=== PATIENT | male | born 1965 | race Caucasian/White ===

== ENCOUNTER 2020-07-03 08:34 | Inpatient (IN) | payer BC ==
[~2020-07-03] VITALS: Ht 193 cm; Wt 102.3 kg
[2020-07-03] MEDS ORDERED: diltiazem 5mg/ml 5ml inj. IV ONE (08:50)
[2020-07-03] MEDS ORDERED: aspirin 81mg tab.chew PO ONE (08:50)
[2020-07-03] MEDS ORDERED: diltiazem-D5W 125mg/125ml 125 ML IV ONE (08:50)
[2020-07-03] MEDS ORDERED: diltiazem-NS 100mg/100ml 100 ML IV ONE (08:55)
[2020-07-03 09:12] LABS: BASOPHILS # (AUTO) 0.1 X10'3 (0-0.2); BASOPHILS % (AUTO) 1.2 % (0-1); EOSINOPHILS # (AUTO) 0.3 X10'3 (0-0.9); EOSINOPHILS % (AUTO) 2.6 % (0-6); HEMATOCRIT 45.5 % (42.0-52.0); HEMOGLOBIN 15.2 g/dl (14.0-17.9); LYMPHOCYTES # (AUTO) 1.9 X10'3 (1.1-4.8); LYMPHOCYTES % (AUTO) 17.3 % (21-51); MEAN CORPUSCULAR HEMOGLOBIN 32.2 PG (27.0-31.0); MEAN CORPUSCULAR HGB CONC 33.3 g/dL (33.0-36.5); MEAN CORPUSCULAR VOLUME 96.6 FL (78-98); MEAN PLATELET VOLUME 8.5 FL (7.4-10.4); MONOCYTES # (AUTO) 0.9 X10'3 (0-0.9); MONOCYTES % (AUTO) 8.1 % (2-12); NEUTROPHILS # (AUTO) 7.6 X10'3 (1.8-7.7); NEUTROPHILS % (AUTO) 70.8 % (42-75); PLATELET COUNT 239 X10'3 (140-440); RED BLOOD COUNT 4.71 X10'6 (4.70-6.10); RED CELL DISTRIBUTION WIDTH 13.9 % (11.5-14.5); WHITE BLOOD COUNT 10.8 X10'3 (4.5-11.0)
[2020-07-03 09:28] LABS: ALANINE AMINOTRANSFERASE 32 U/L (12-78); ALBUMIN 3.6 G/DL (3.4-5.0); ALBUMIN/GLOBULIN RATIO 0.9 (1.1-1.5); ALKALINE PHOSPHATASE 125 IU/L (46-116); ANION GAP 9 (8-16); ASPARTATE AMINO TRANSFERASE 27 U/L (10-37); BILIRUBIN,TOTAL 0.8 MG/DL (0.1-1.0); BLOOD UREA NITROGEN 21 MG/DL (7-18); BUN/CREATININE RATIO 19.6 (5.4-32.0); CALCIUM 9.3 MG/DL (8.5-10.1); CHLORIDE 104 MMOL/L (99-107); CREATININE 1.07 MG/DL (0.60-1.10); GLUCOSE 113 MG/DL (70-104); POTASSIUM 4.8 MMOL/L (3.5-5.1); SODIUM 138 MMOL/L (135-145); TOTAL CARBON DIOXIDE 24.7 MMOL/L (24-32); TOTAL PROTEIN 7.6 G/DL (6.4-8.2); eGFR 71 ML/MIN
[2020-07-03 09:36] LABS: MAGNESIUM 1.9 MG/DL (1.5-2.4)
[2020-07-03] MEDS ORDERED: enoxaparin 100mg/ml syringe SUBCUT ONE ×2 (10:00→10:05)
[2020-07-03] MEDS ORDERED: metoprolol tartrate 1mg/ml inj IV ONE (10:00)
[2020-07-03 10:20] LABS: D-DIMER 1.46 MG/L FEU (0-0.50)
[2020-07-03] MEDS ORDERED: iohexol 350MG/ML 100ml bottle IV ONE (10:47)
[2020-07-03] MEDS ORDERED: mag hydrox/Alum hydrox/simeth 30ml oral suspension PO PRN (11:35)
[2020-07-03] MEDS ORDERED: HYDROcodone/acetaminophen 10/325mg tab PO PRN (11:35)
[2020-07-03] MEDS ORDERED: magnesium hydroxide 30ml (MOM) UD suspension PO PRN (11:35)
[2020-07-03] MEDS ORDERED: magnesium Cl slow-release 64mg tablet PO PRN (11:35)
[2020-07-03] MEDS ORDERED: magnesium 4gm in 100ml NS 100 ML IV PRN (11:35)
[2020-07-03] MEDS ORDERED: potassium CL 10mEq/100ml bag 100 ML IV PRN ×2 (11:35)
[2020-07-03] MEDS ORDERED: magnesium 2GM in 50ml NS 50 ML IV PRN (11:35)
[2020-07-03] MEDS ORDERED: morphine 2 MG/ML inj. syringe IV PRN ×2 (11:35)
[2020-07-03] MEDS ORDERED: bisacodyl 10mg suppository rectal RC PRN (11:35)
[2020-07-03] MEDS ORDERED: ondansetron/PF 4mg/2ml inj IV PRN (11:35)
[2020-07-03] MEDS ORDERED: acetaminophen 325mg tablet PO PRN ×2 (11:35)
[2020-07-03] MEDS ORDERED: diphenhydrAMINE 25mg capsule PO PRN (11:35)
[2020-07-03] MEDS ORDERED: HYDROcodone/acetaminophen 5mg/325mg tablet PO PRN (11:35)
[2020-07-03] MEDS ORDERED: normal saline 1000ml 1,000 ML IV SCH (11:35)
[2020-07-03] MEDS ORDERED: acetaminophen 650mg rectal suppository RC PRN (11:35)
[2020-07-03] MEDS ORDERED: potassium Cl 20 mEq SR tablet PO PRN ×2 (11:35)
[2020-07-03] MEDS: diltiazem-NS 100mg/100ml 100 ML IV SCH (11:45)
[2020-07-03 11:54] LABS: CLARITY,URINE CLEAR (Clear); COLOR,URINE STRAW (Yellow); GLUCOSE, URINE NEGATIVE (Neg); KETONES,URINE NEGATIVE (Neg); LEUKOCYTE ESTERASE ,URINE SMALL (Neg); NITRITES, URINE NEGATIVE (Neg); OCCULT BLOOD,URINE NEGATIVE (Neg); PH,URINE 5.5 (4.8-8.0); PROTEIN,URINE NEGATIVE (Neg); UA COLLECTION TYPE URINAL; UROBILINOGEN,URINE 0.2 E.U/dL (0.2-1.0)
[2020-07-03 12:19] LABS: BACTERIA,URINE FEW /HPF (Neg); RBC,URINE 0-2 /HPF (0-2); SQUAMOUS EPITHELIAL CELL,UR FEW /LPF (FEW); WBC,URINE 0-4 /HPF (0-4)
[2020-07-03] MEDS ORDERED: NO HOME MEDS (14:21)
--- NOTE | 2020-07-03 16:00 | NUR ---
Patient in room PCU 3028. I have received report from Nelsy MALDONADO and had the opportunity to ask questions and assume patient care.
[2020-07-03 16:34] VITALS: BP 128/86
[2020-07-03 18:00] VITALS: BP 139/111
--- NOTE | 2020-07-03 18:25 | NUR ---
Patient in room PCU 3028. I have received report from Yary MALDONADO and had the opportunity to ask questions and assume patient care.
--- NOTE | 2020-07-03 18:31 | NUR ---
Problems reprioritized. Patient report given, questions answered & plan of care reviewed with JOEL Nickerson.
[2020-07-03] MEDS: enoxaparin 100mg/ml syringe SUBCUT SCH (19:40)
[2020-07-03] MEDS: K and/or MAG REPLACEMENT MC SCH (20:00)
--- NOTE | 2020-07-03 20:13 | NUR ---
Paged MD Muller regarding patient's need for nicotine patch and sleep aid for patient. PAGER ID: [phone] MESSAGE: Re: Stepan Kraftgarima Rm. [id number]. Patient smokes 10x cigarettes/day. Possible to get nicotine patch? Also having difficulty sleep past three days. Possible sleep aid? FYI: Smokes pot at home for sleep. Jose MALDONADO [id number]
[2020-07-03 22:00] VITALS: BP 120/82
[2020-07-03] MEDS ORDERED: temazepam 15mg capsule PO PRN (22:55)
[2020-07-03] MEDS: nicotine 14mg patch - 24hr TD SCH (23:08)
[2020-07-03] MEDS ORDERED: furosemide 10 MG/1 ML 10ml inj IV ONE (23:30)
[2020-07-03] MEDS ORDERED: ipratropium/albuterol 3ml nebule NEB PRN (23:30)
[2020-07-03] MEDS ORDERED: metoprolol tartrate 1mg/ml inj IV PRN (23:35)
[2020-07-03] MEDS ORDERED: nitroGLYCERIN 0.4mg SUBLingual tab SL PRN (23:35)
[2020-07-03] MEDS ORDERED: aminophylline 250mg/10ml inj. IV PRN (23:35)
[2020-07-03] MEDS: nicotine 21mg patch - 24 hr TD SCH (23:45)
[2020-07-03] MEDS ORDERED: LORazepam 1 MG tablet PO PRN (23:45)
[2020-07-03] MEDS ORDERED: haloperidol lactate 5mg/ml inj IM PRN (23:45)
[2020-07-03] MEDS ORDERED: thiamine inj. 100 MG in normal saline 100ml IV soln 100 ML IV ONE (23:45)
[2020-07-03] MEDS ORDERED: LORazepam 2 mg/ml vial IV PRN (23:45)
[2020-07-03] MEDS ORDERED: haloperidol 5mg tablet PO PRN (23:45)
[2020-07-04] VITALS (12 sets, daily range): BP systolic 103–140; BP diastolic 62–90
[2020-07-04] MEDS: CefTRIAXone/D5W-Rocephin 1gm 50 ML IV SCH ×2 (01:56→07:38)
[2020-07-04] MEDS: metoprolol succinate 25mg (24-HOUR) SR. Tablet PO SCH ×2 (01:56→08:00)
[2020-07-04] MEDS: lisinopril 20mg tablet PO SCH ×2 (01:57→08:00)
[2020-07-04] MEDS: ipratropium/albuterol 3ml nebule NEB SCH ×4 (01:57→20:17)
[2020-07-04] MEDS: diltiazem-NS 100mg/100ml 100 ML IV SCH ×2 (02:02→11:56)
--- NOTE | 2020-07-04 05:04 | NUR ---
[place] I have reviewed and agree with all interventions, assessments performed and documented by Jose MALDONADO. [place] Medication Administration: For this medication-pass time frame, all medication were reviewed, dispensed, administered and documented per hospital policy by Jose MALDONADO.
[2020-07-04 05:07] LABS: BASOPHILS % (AUTO) 0.3 % (0-1); EOSINOPHILS # (AUTO) 0.1 X10'3 (0-0.9); EOSINOPHILS % (AUTO) 1.6 % (0-6); HEMATOCRIT 43.4 % (42.0-52.0); HEMOGLOBIN 14.6 g/dl (14.0-17.9); LYMPHOCYTES % (AUTO) 20.9 % (21-51); MEAN CORPUSCULAR HEMOGLOBIN 31.9 PG (27.0-31.0); MEAN CORPUSCULAR HGB CONC 33.6 g/dL (33.0-36.5); MONOCYTES # (AUTO) 0.8 X10'3 (0-0.9); MONOCYTES % (AUTO) 8.1 % (2-12); NEUTROPHILS # (AUTO) 6.5 X10'3 (1.8-7.7); NEUTROPHILS % (AUTO) 69.1 % (42-75); PLATELET COUNT 219 X10'3 (140-440); RED BLOOD COUNT 4.57 X10'6 (4.70-6.10); RED CELL DISTRIBUTION WIDTH 13.7 % (11.5-14.5); WHITE BLOOD COUNT 9.3 X10'3 (4.5-11.0)
[2020-07-04 05:28] LABS: ALANINE AMINOTRANSFERASE 24 U/L (12-78); ALBUMIN 3.6 G/DL (3.4-5.0); ALBUMIN/GLOBULIN RATIO 0.9 (1.1-1.5); ALKALINE PHOSPHATASE 110 IU/L (46-116); ANION GAP 10 (8-16); ASPARTATE AMINO TRANSFERASE 18 U/L (10-37); BILIRUBIN,TOTAL 1.4 MG/DL (0.1-1.0); BLOOD UREA NITROGEN 20 MG/DL (7-18); BUN/CREATININE RATIO 19.6 (5.4-32.0); CHLORIDE 105 MMOL/L (99-107); CHOLESTEROL 161 MG/DL (0-200); CREATININE 1.02 MG/DL (0.60-1.10); GLUCOSE 107 MG/DL (70-104); HDL CHOLESTEROL 40 MG/DL (35-60); LDL CHOLESTEROL 112 MG/DL (50-100); LIPASE 157 U/L (73-393); MAGNESIUM 1.8 MG/DL (1.5-2.4); PHOSPHORUS 3.5 MG/DL (2.3-4.5); POTASSIUM 3.6 MMOL/L (3.5-5.1); SODIUM 141 MMOL/L (135-145); TOTAL CARBON DIOXIDE 25.8 MMOL/L (24-32); TOTAL PROTEIN 7.4 G/DL (6.4-8.2); TRIGLYCERIDES 117 MG/DL (20-135); eGFR 76 ML/MIN
[2020-07-04] MEDS ORDERED: regadenoson 0.4mg/5ml syringe IV ONE (06:00)
--- NOTE | 2020-07-04 06:08 | NUR ---
Problems reprioritized. Patient report given, questions answered & plan of care reviewed with Yary MALDONADO.
--- NOTE | 2020-07-04 06:29 | NUR ---
Patient in room PCU 3028. I have received report from Liya MALDONADO and Jose MALDONADO and had the opportunity to ask questions and assume patient care.
[2020-07-04] MEDS: K and/or MAG REPLACEMENT MC SCH ×2 (07:36→20:00)
[2020-07-04] MEDS: thiamine 100mg tablet PO SCH (07:38)
[2020-07-04] MEDS: nicotine 14mg patch - 24hr TD SCH (07:38)
[2020-07-04] MEDS: folic acid 1mg tablet PO SCH (07:39)
[2020-07-04] MEDS: multivitamins, therapeutics tablet PO SCH (07:39)
[2020-07-04] MEDS: enoxaparin 100mg/ml syringe SUBCUT SCH ×2 (07:40→19:54)
[2020-07-04] MEDS: nicotine 21mg patch - 24 hr TD SCH (08:00)
[2020-07-04] MEDS: furosemide 40mg/4ml inj IV SCH ×2 (08:00→19:53)
[2020-07-04] MEDS: spironolactone 25 MG tablet PO SCH (08:30)
[2020-07-04 09:31] LABS: URINE AMPHETAMINE SCREEN NEGATIVE (Neg); URINE BARBITUATE SCREEN NEGATIVE (Neg); URINE BENZODIAZEPINES SCREEN NEGATIVE (Neg); URINE CANNABINOID SCREEN POSITIVE (Neg); URINE COCAINE SCREEN NEGATIVE (Neg); URINE METHADONE SCREEN NEGATIVE (Neg); URINE OPIATE SCREEN NEGATIVE (Neg); URINE PHENCYCLIDINE SCREEN NEGATIVE (Neg)
--- NOTE | 2020-07-04 10:00 | NUR ---
mORNING svn [id number] NOT ON UNIT
--- NOTE | 2020-07-04 11:05 | NUR ---
Transported patient down to [facility], arrived at this time.
--- NOTE | 2020-07-04 11:17 | NUR ---
Patient tolerating well, no s/sx of distress. VSS. HR 88 A-fib, Spo2 93%, 19 respirs, BP 99/58. Called Yary MALDONADO on PCU to make aware that Cardizem bag will need replaced shortly after arriving back to PCU.
--- NOTE | 2020-07-04 18:12 | NUR ---
Problems reprioritized. Patient report given, questions answered & plan of care reviewed with Liya MALDONADO and Jose MALDONADO.
--- NOTE | 2020-07-04 18:15 | NUR ---
Patient in room PCU 3028. I have received report from Yary MALDONADO and had the opportunity to ask questions and assume patient care.
[2020-07-04 18:33] LABS: ALANINE AMINOTRANSFERASE 27 U/L (12-78); ALBUMIN 3.7 G/DL (3.4-5.0); ALBUMIN/GLOBULIN RATIO 0.9 (1.1-1.5); ALKALINE PHOSPHATASE 113 IU/L (46-116); ASPARTATE AMINO TRANSFERASE 27 U/L (10-37); BILIRUBIN,DIRECT 0.4 MG/DL (0-0.3); BILIRUBIN,TOTAL 1.4 MG/DL (0.1-1.0); TOTAL PROTEIN 7.8 G/DL (6.4-8.2)
[2020-07-04] MEDS: amiodarone 200mg tablet PO SCH (19:48)
[2020-07-04] MEDS: carvedilol 6.25mg tablet PO SCH (19:48)
[2020-07-04] MEDS: lactobacillus rhamnosus 10,000 MMU CELLS/CAPSULE PO SCH (19:49)
[2020-07-05 02:00] VITALS: BP_SYST 116; BP_SYST 140; BP_DIAS 75; BP_DIAS 76
[2020-07-05] MEDS: ipratropium/albuterol 3ml nebule NEB SCH ×4 (02:47→19:23)
[2020-07-05 04:57] LABS: BASOPHILS # (AUTO) 0.1 X10'3 (0-0.2); BASOPHILS % (AUTO) 1.3 % (0-1); EOSINOPHILS # (AUTO) 0.3 X10'3 (0-0.9); EOSINOPHILS % (AUTO) 2.9 % (0-6); HEMATOCRIT 44.4 % (42.0-52.0); HEMOGLOBIN 14.8 g/dl (14.0-17.9); LYMPHOCYTES # (AUTO) 1.9 X10'3 (1.1-4.8); LYMPHOCYTES % (AUTO) 20.3 % (21-51); MEAN CORPUSCULAR HEMOGLOBIN 32.3 PG (27.0-31.0); MEAN CORPUSCULAR HGB CONC 33.4 g/dL (33.0-36.5); MEAN CORPUSCULAR VOLUME 96.5 FL (78-98); MEAN PLATELET VOLUME 8.8 FL (7.4-10.4); MONOCYTES % (AUTO) 11.2 % (2-12); NEUTROPHILS # (AUTO) 5.9 X10'3 (1.8-7.7); NEUTROPHILS % (AUTO) 64.3 % (42-75); PLATELET COUNT 237 X10'3 (140-440); RED BLOOD COUNT 4.59 X10'6 (4.70-6.10); RED CELL DISTRIBUTION WIDTH 13.6 % (11.5-14.5); WHITE BLOOD COUNT 9.2 X10'3 (4.5-11.0)
[2020-07-05 05:00] LABS: ALANINE AMINOTRANSFERASE 22 U/L (12-78); ALBUMIN 3.3 G/DL (3.4-5.0); ALBUMIN/GLOBULIN RATIO 0.9 (1.1-1.5); ALKALINE PHOSPHATASE 99 IU/L (46-116); ANION GAP 8 (8-16); ASPARTATE AMINO TRANSFERASE 23 U/L (10-37); BILIRUBIN,TOTAL 1.3 MG/DL (0.1-1.0); BLOOD UREA NITROGEN 16 MG/DL (7-18); CALCIUM 8.9 MG/DL (8.5-10.1); CHLORIDE 103 MMOL/L (99-107); CREATININE 1.14 MG/DL (0.60-1.10); GLUCOSE 102 MG/DL (70-104); LIPASE 121 U/L (73-393); MAGNESIUM 1.7 MG/DL (1.5-2.4); PHOSPHORUS 3.8 MG/DL (2.3-4.5); POTASSIUM 3.7 MMOL/L (3.5-5.1); SODIUM 140 MMOL/L (135-145); TOTAL CARBON DIOXIDE 28.6 MMOL/L (24-32); eGFR 66 ML/MIN
[2020-07-05 06:00] VITALS: BP 121/64
--- NOTE | 2020-07-05 06:08 | NUR ---
Problems reprioritized. Patient report given, questions answered & plan of care reviewed with Sarah MALDONADO.
--- NOTE | 2020-07-05 06:08 | NUR ---
Patient in room PCU 3028. I have received report from QUENTIN MALDONADO AND PIYUSH MALDONADO and had the opportunity to ask questions and assume patient care.
[2020-07-05] MEDS: CefTRIAXone/D5W-Rocephin 1gm 50 ML IV SCH (07:31)
[2020-07-05] MEDS: nicotine 14mg patch - 24hr TD SCH (07:31)
[2020-07-05] MEDS: enoxaparin 100mg/ml syringe SUBCUT SCH ×2 (07:31→19:10)
[2020-07-05] MEDS: multivitamins, therapeutics tablet PO SCH (07:32)
[2020-07-05] MEDS: thiamine 100mg tablet PO SCH (07:32)
[2020-07-05] MEDS: carvedilol 6.25mg tablet PO SCH ×2 (07:32→19:10)
[2020-07-05] MEDS: lisinopril 20mg tablet PO SCH (07:32)
[2020-07-05] MEDS: lactobacillus rhamnosus 10,000 MMU CELLS/CAPSULE PO SCH ×2 (07:32→19:08)
[2020-07-05] MEDS: amiodarone 200mg tablet PO SCH ×2 (07:32→19:08)
[2020-07-05] MEDS: folic acid 1mg tablet PO SCH (07:32)
[2020-07-05] MEDS: furosemide 40mg/4ml inj IV SCH ×2 (07:33→19:10)
[2020-07-05] MEDS: spironolactone 25 MG tablet PO SCH (07:33)
[2020-07-05] MEDS: K and/or MAG REPLACEMENT MC SCH ×2 (08:00→20:00)
[2020-07-05] MEDS: nicotine 21mg patch - 24 hr TD SCH (08:00)
[2020-07-05 11:00] VITALS: BP 89/68
[2020-07-05 18:00] VITALS: BP 109/64
--- NOTE | 2020-07-05 18:11 | NUR ---
Problems reprioritized. Patient report given, questions answered & plan of care reviewed with Liya MALDONADO and Jose MALDONADO.
--- NOTE | 2020-07-05 18:25 | NUR ---
Patient in room PCU 3028. I have received report from Sarah MALDONADO and had the opportunity to ask questions and assume patient care.
[2020-07-06 02:00] VITALS: BP 101/66
[2020-07-06] MEDS: ipratropium/albuterol 3ml nebule NEB SCH ×3 (02:21→14:28)
[2020-07-06 04:26] LABS: BASOPHILS # (AUTO) 0.1 X10'3 (0-0.2); BASOPHILS % (AUTO) 0.8 % (0-1); EOSINOPHILS # (AUTO) 0.3 X10'3 (0-0.9); EOSINOPHILS % (AUTO) 3.4 % (0-6); HEMATOCRIT 48.3 % (42.0-52.0); HEMOGLOBIN 15.9 g/dl (14.0-17.9); LYMPHOCYTES # (AUTO) 1.8 X10'3 (1.1-4.8); LYMPHOCYTES % (AUTO) 18.9 % (21-51); MEAN CORPUSCULAR HEMOGLOBIN 31.9 PG (27.0-31.0); MEAN CORPUSCULAR VOLUME 96.6 FL (78-98); MEAN PLATELET VOLUME 8.3 FL (7.4-10.4); MONOCYTES # (AUTO) 1.2 X10'3 (0-0.9); MONOCYTES % (AUTO) 12.1 % (2-12); NEUTROPHILS # (AUTO) 6.3 X10'3 (1.8-7.7); NEUTROPHILS % (AUTO) 64.8 % (42-75); PLATELET COUNT 267 X10'3 (140-440); RED CELL DISTRIBUTION WIDTH 14.2 % (11.5-14.5); WHITE BLOOD COUNT 9.7 X10'3 (4.5-11.0)
[2020-07-06 04:47] LABS: ALANINE AMINOTRANSFERASE 27 U/L (12-78); ALBUMIN 3.4 G/DL (3.4-5.0); ALBUMIN/GLOBULIN RATIO 0.9 (1.1-1.5); ALKALINE PHOSPHATASE 102 IU/L (46-116); ANION GAP 8 (8-16); ASPARTATE AMINO TRANSFERASE 23 U/L (10-37); BILIRUBIN,TOTAL 0.8 MG/DL (0.1-1.0); BLOOD UREA NITROGEN 26 MG/DL (7-18); BUN/CREATININE RATIO 18.8 (5.4-32.0); CALCIUM 9.5 MG/DL (8.5-10.1); CHLORIDE 102 MMOL/L (99-107); CREATININE 1.38 MG/DL (0.60-1.10); GLUCOSE 111 MG/DL (70-104); LIPASE 134 U/L (73-393); PHOSPHORUS 4.4 MG/DL (2.3-4.5); POTASSIUM 4.8 MMOL/L (3.5-5.1); SODIUM 140 MMOL/L (135-145); TOTAL CARBON DIOXIDE 30.4 MMOL/L (24-32); TOTAL PROTEIN 7.3 G/DL (6.4-8.2); eGFR 53 ML/MIN
[2020-07-06 06:00] VITALS: BP 95/70
--- NOTE | 2020-07-06 06:00 | NUR ---
Problems reprioritized. Patient report given, questions answered & plan of care reviewed with Sarah MALDONADO.
--- NOTE | 2020-07-06 06:08 | NUR ---
Patient in room PCU 3028. I have received report from Liya MALDONADO and Jose MALDONADO and had the opportunity to ask questions and assume patient care.
[2020-07-06] MEDS ORDERED: carVEDilol 12.5mg tablet PO SCH (08:00)
[2020-07-06] MEDS ORDERED: furosemide 20 MG/2 ML vial IV SCH (08:00)
[2020-07-06] MEDS: K and/or MAG REPLACEMENT MC SCH (08:00)
[2020-07-06] MEDS: nicotine 14mg patch - 24hr TD SCH (08:00)
[2020-07-06] MEDS: enoxaparin 100mg/ml syringe SUBCUT SCH (08:12)
[2020-07-06] MEDS: folic acid 1mg tablet PO SCH (08:13)
[2020-07-06] MEDS: thiamine 100mg tablet PO SCH (08:13)
[2020-07-06] MEDS: multivitamins, therapeutics tablet PO SCH (08:13)
[2020-07-06] MEDS: lactobacillus rhamnosus 10,000 MMU CELLS/CAPSULE PO SCH (08:13)
[2020-07-06] MEDS: amiodarone 200mg tablet PO SCH (08:13)
[2020-07-06] MEDS: nicotine 21mg patch - 24 hr TD SCH (08:15)
[2020-07-06] MEDS: spironolactone 25 MG tablet PO SCH (08:17)
[2020-07-06] MEDS: CefTRIAXone/D5W-Rocephin 1gm 50 ML IV SCH (08:17)
[2020-07-06] MEDS ORDERED: ALBU8.5H8 INH (09:38)
[2020-07-06] MEDS ORDERED: CARV-50 PO (09:38)
[2020-07-06] MEDS ORDERED: NITR0.4T51 SL (09:38)
[2020-07-06] MEDS ORDERED: LISI10TA4 PO (09:38)
[2020-07-06] MEDS ORDERED: THIA50TA10 PO (09:38)
[2020-07-06] MEDS ORDERED: CEFD300C3 PO (09:38)
[2020-07-06] MEDS ORDERED: LACT1CAP26 PO (09:38)
[2020-07-06] MEDS ORDERED: APIX5TAB3 PO (09:38)
[2020-07-06] MEDS ORDERED: SPIR25TA PO (09:38)
[2020-07-06] MEDS ORDERED: AMIO200T61 PO (09:38)
[2020-07-06] MEDS ORDERED: MULT-25 PO (09:38)
[2020-07-06] MEDS ORDERED: FOLI0.4T2 PO (09:38)
[2020-07-06] MEDS ORDERED: FURO-150 PO (09:39)
[2020-07-06] MEDS ORDERED: ondansetron 4mg rapidly disintigrating tab PO PRN (10:55)
[2020-07-06 11:00] VITALS: BP 96/73
[2020-07-06 11:42] VITALS: BP_SYST 100
[2020-07-06] MEDS ORDERED: lisinopril 10 MG tablet PO SCH (12:00)
--- NOTE | 2020-07-06 16:30 | NUR ---
Stable for discharge per MD order, all discharge instructions reviewed with patient and all questions answered, made f/u apt for the patient with Dr Pelayo office on July 28 at 0900, new prescriptions sent to preferred pharmacy, pt called his PCP to make f/u apt, received [employer] and education prior to d/c, Dr Schwartz and Dr Caldera saw patient prior to discharge,tele monitor and PIV discontinued, all belongings collected and sent with patient, left the unit at 1630 in wheelchair with RN to private vehicle.
== END 2020-07-06 16:30 | disposition home or self-care (01) | DRG 291 ==
LOC: ER 08:35 → ED HOLD 11:35 → EDBEDREQ 15:07 → PCU 3S 16:05
PROVIDERS: ADMIT Family Medicine; ATTEND Family Medicine
PROC: B32T1ZZ Computerized Tomography (CT Scan) of Left Pulmonary Artery using Low Osmolar Contrast (ICD-10-PCS; principal; 2020-07-03)
PROC: B3201ZZ Computerized Tomography (CT Scan) of Thoracic Aorta using Low Osmolar Contrast (ICD-10-PCS; 2020-07-03)
PROC: B32S1ZZ Computerized Tomography (CT Scan) of Right Pulmonary Artery using Low Osmolar Contrast (ICD-10-PCS; 2020-07-03)
PROC: 4A02XM4 Measurement of Cardiac Total Activity, External Approach (ICD-10-PCS; 2020-07-04)
PROC: 3E073KZ Introduction of Other Diagnostic Substance into Coronary Artery, Percutaneous Approach (ICD-10-PCS; 2020-07-04)
DX: I11.0 Hypertensive heart disease with heart failure (principal); I50.21 Acute systolic (congestive) heart failure; N39.0 Urinary tract infection, site not specified; F10.10 Alcohol abuse, uncomplicated; I42.9 Cardiomyopathy, unspecified; F12.90 Cannabis use, unspecified, uncomplicated; F17.210 Nicotine dependence, cigarettes, uncomplicated; Z60.2 Problems related to living alone; F41.9 Anxiety disorder, unspecified; G47.00 Insomnia, unspecified; I16.0 Hypertensive urgency; I48.91 Unspecified atrial fibrillation; J44.9 Chronic obstructive pulmonary disease, unspecified; Z79.899 Other long term (current) drug therapy; Z80.1 Family history of malignant neoplasm of trachea, bronchus and lung; Z71.6 Tobacco abuse counseling; Z71.41 Alcohol abuse counseling and surveillance of alcoholic
CPT/HCPCS: 36415; 71045; 71270; 78452; 80053; 80061; 80076; 80305; 81001; 83036; 83690; 83735; 83880; 84100; 84439; 84443; 84484; 85025; 85379; 85610; 87081; 87088; 93005; 93017; 93306; 94640; 94760; 96365; 96375; 96376; 99285; A9500; G0378; J0696; J1650; J1940; J3411; J3490; J7030; Q9967

== ENCOUNTER 2020-08-04 06:51 | Day surgery (SDC) | payer BC ==
[2020-08-03 12:40] LABS: BASOPHILS # (AUTO) 0.1 X10'3 (0-0.2); EOSINOPHILS # (AUTO) 0.5 X10'3 (0-0.9); EOSINOPHILS % (AUTO) 4.9 % (0-6); HEMATOCRIT 46.4 % (42.0-52.0); HEMOGLOBIN 15.6 g/dl (14.0-17.9); LYMPHOCYTES # (AUTO) 1.7 X10'3 (1.1-4.8); LYMPHOCYTES % (AUTO) 15.7 % (21-51); MEAN CORPUSCULAR HEMOGLOBIN 31.5 PG (27.0-31.0); MEAN CORPUSCULAR HGB CONC 33.6 g/dL (33.0-36.5); MEAN CORPUSCULAR VOLUME 93.9 FL (78-98); MEAN PLATELET VOLUME 7.8 FL (7.4-10.4); MONOCYTES % (AUTO) 9.6 % (2-12); NEUTROPHILS # (AUTO) 7.3 X10'3 (1.8-7.7); NEUTROPHILS % (AUTO) 68.8 % (42-75); PLATELET COUNT 261 X10'3 (140-440); RED BLOOD COUNT 4.94 X10'6 (4.70-6.10); RED CELL DISTRIBUTION WIDTH 13.5 % (11.5-14.5); WHITE BLOOD COUNT 10.6 X10'3 (4.5-11.0)
[2020-08-03 13:09] LABS: ALBUMIN 3.6 G/DL (3.4-5.0); ANION GAP 5 (8-16); BLOOD UREA NITROGEN 23 MG/DL (7-18); BUN/CREATININE RATIO 17.8 (5.4-32.0); CALCIUM 9.4 MG/DL (8.5-10.1); CHLORIDE 102 MMOL/L (99-107); CREATININE 1.29 MG/DL (0.60-1.10); GLUCOSE 102 MG/DL (70-104); POTASSIUM 4.9 MMOL/L (3.5-5.1); SODIUM 138 MMOL/L (135-145); TOTAL CARBON DIOXIDE 31.4 MMOL/L (24-32); eGFR 58 ML/MIN
[2020-08-04] VITALS (30 sets, daily range): BP systolic 86–120; BP diastolic 52–78
[~2020-08-04] VITALS: Ht 195.6 cm; Wt 97.8 kg
[~2020-08-04 06:51] MED LIST: ALBU8.5H8 INH; AMIO200T61 PO; APIX5TAB3 PO; CARV-50 PO; CEFD300C3 PO; FOLI0.4T2 PO; FURO-150 PO; LACT1CAP26 PO; LISI10TA4 PO; MULT-25 PO; NITR0.4T51 SL; SPIR25TA PO; THIA50TA10 PO
[2020-08-04] MEDS ORDERED: LORazepam 0.5 MG tablet PO ONE (07:20)
[2020-08-04] MEDS ORDERED: diphenhydrAMINE 25mg capsule PO ONE (07:20)
[2020-08-04] MEDS ORDERED: atropine 0.1mg/ml 10ml syringe IV ONE (07:20)
[2020-08-04] MEDS ORDERED: morphine 10mg/ml inj. IV ONE (07:20)
[2020-08-04] MEDS ORDERED: MIDAZolam 1mg/ml 10ml vial IV ONE (07:20)
[2020-08-04] MEDS ORDERED: normal saline 1000ml 1,000 ML IV SCH (07:20)
[2020-08-04] MEDS ORDERED: amiodarone 150mg/dext, iso-os 100 ML IV ONE (07:20)
[2020-08-04] MEDS ORDERED: MULT-1085 PO (10:20)
[2020-08-04] MEDS ORDERED: CARV-50 PO (10:20)
[2020-08-04] MEDS ORDERED: FURO-150 PO (10:20)
[2020-08-04] MEDS ORDERED: ALBU8.5H8 INH (10:20)
[2020-08-04] MEDS ORDERED: NITR0.4T51 SL (10:20)
[2020-08-04] MEDS ORDERED: THIA50TA10 PO (10:20)
[2020-08-04] MEDS ORDERED: APIX5TAB3 PO (10:20)
[2020-08-04] MEDS ORDERED: AMIO200T27 PO (10:20)
[2020-08-04] MEDS ORDERED: LISI10TA4 PO (10:20)
[2020-08-04] MEDS ORDERED: FOLI0.4T14 PO (10:20)
[2020-08-04] MEDS ORDERED: SPIR25TA5 PO (10:20)
== END 2020-08-04 12:35 | disposition home or self-care (01) ==
LOC: SSTAY O 06:51
PROVIDERS: ATTEND Internal Medicine Cardiovascular Disease
DX: I48.19 Other persistent atrial fibrillation (principal); I50.22 Chronic systolic (congestive) heart failure; I10 Essential (primary) hypertension
CPT/HCPCS: 36415; 80048; 83880; 85025; 85610; 92960; 93005; 94799; J2250; J2270; J7030; Q0163

== ENCOUNTER 2022-02-22 08:09 | Emergency (ER) | payer BC ==
[~2022-02-22] VITALS: Ht 190.5 cm; Wt 109.1 kg
[~2022-02-22 08:09] MED LIST changes: +ALBU8.5H17 INH; -ALBU8.5H8 INH; +AMIO200T27 PO; -AMIO200T61 PO; -CEFD300C3 PO; +FOLI0.4T14 PO; -FOLI0.4T2 PO; -LACT1CAP26 PO; +LISI10TA27 PO; -LISI10TA4 PO; +MULT-1085 PO; -MULT-25 PO; -SPIR25TA PO; +SPIR25TA5 PO
[2022-02-22] MEDS ORDERED: normal saline 1000ML IV soln IVB ONE (08:40)
[2022-02-22] MEDS ORDERED: ondansetron/PF 4mg/2ml inj IV ONE (08:40)
[2022-02-22 08:56] LABS: BASOPHILS # (AUTO) 0.1 X10'3 (0-0.2); EOSINOPHILS # (AUTO) 0.1 X10'3 (0-0.9); EOSINOPHILS % (AUTO) 1.6 % (0-6); HEMATOCRIT 38.8 % (42.0-52.0); HEMOGLOBIN 13.3 g/dl (14.0-17.9); LYMPHOCYTES # (AUTO) 0.8 X10'3 (1.1-4.8); LYMPHOCYTES % (AUTO) 11.4 % (21-51); MEAN CORPUSCULAR HEMOGLOBIN 30.4 PG (27.0-31.0); MEAN CORPUSCULAR HGB CONC 34.2 g/dL (33.0-36.5); MEAN PLATELET VOLUME 7.6 FL (7.4-10.4); MONOCYTES # (AUTO) 0.9 X10'3 (0-0.9); MONOCYTES % (AUTO) 12.3 % (2-12); NEUTROPHILS # (AUTO) 5.3 X10'3 (1.8-7.7); NEUTROPHILS % (AUTO) 73.7 % (42-75); PLATELET COUNT 239 X10'3 (140-440); RED BLOOD COUNT 4.36 X10'6 (4.70-6.10); RED CELL DISTRIBUTION WIDTH 13.2 % (11.5-14.5); WHITE BLOOD COUNT 7.1 X10'3 (4.5-11.0)
[2022-02-22 09:12] LABS: ALANINE AMINOTRANSFERASE 18 U/L (12-78); ALBUMIN 3.2 G/DL (3.4-5.0); ALBUMIN/GLOBULIN RATIO 0.8 (1.1-1.5); ALKALINE PHOSPHATASE 93 IU/L (46-116); ASPARTATE AMINO TRANSFERASE 21 U/L (10-37); BILIRUBIN,TOTAL 0.5 MG/DL (0.1-1.0); BLOOD UREA NITROGEN 32 MG/DL (7-18); BUN/CREATININE RATIO 21.9 (5.4-32.0); CALCIUM 8.4 MG/DL (8.5-10.1); CHLORIDE 100 MMOL/L (99-107); CREATININE 1.46 MG/DL (0.60-1.10); GLUCOSE 140 MG/DL (70-104); LIPASE 120 U/L (73-393); POTASSIUM 4.4 MMOL/L (3.5-5.1); SODIUM 134 MMOL/L (135-145); TOTAL PROTEIN 7.3 G/DL (6.4-8.2); eGFR 50 ML/MIN
[2022-02-22 09:15] LABS: ANION GAP 11 (8-16); TOTAL CARBON DIOXIDE 22.9 MMOL/L (24-32)
[2022-02-22] MEDS ORDERED: ketorolac trometh. 30mg/ml inj. IV ONE (09:25)
[2022-02-22 10:14] LABS: CLARITY,URINE CLEAR (Clear); COLOR,URINE YELLOW (Yellow); GLUCOSE, URINE NEGATIVE (Neg); KETONES,URINE NEGATIVE (Neg); LEUKOCYTE ESTERASE ,URINE NEGATIVE (Neg); NITRITES, URINE NEGATIVE (Neg); OCCULT BLOOD,URINE NEGATIVE (Neg); PROTEIN,URINE NEGATIVE (Neg); UROBILINOGEN,URINE 0.2 E.U/dL (0.2-1.0)
[2022-02-22 10:19] LABS: UA COLLECTION TYPE CLN CATCH MIDSTREAM
[2022-02-22 10:48] VITALS: BP 106/73
== END 2022-02-22 10:50 | disposition home or self-care (01) ==
LOC: ER 08:10
DX: R10.9 Unspecified abdominal pain (principal); I50.9 Heart failure, unspecified; Z79.899 Other long term (current) drug therapy
CPT/HCPCS: 36415; 80053; 81003; 83690; 85025; 96361; 96374; 96375; 99283; J1885; J2405; J7030

== ENCOUNTER 2022-09-11 06:55 | Emergency (ER) | payer BC ==
[~2022-09-11] VITALS: Ht 193 cm; Wt 101.3 kg
[2022-09-11 08:23] LABS: BASOPHILS # (AUTO) 0.1 X10'3 (0-0.2); BASOPHILS % (AUTO) 1.1 % (0-1); EOSINOPHILS # (AUTO) 0.4 X10'3 (0-0.9); HEMATOCRIT 44.4 % (42.0-52.0); HEMOGLOBIN 15.1 g/dl (14.0-17.9); LYMPHOCYTES # (AUTO) 1.4 X10'3 (1.1-4.8); LYMPHOCYTES % (AUTO) 13.8 % (21-51); MEAN CORPUSCULAR HGB CONC 33.9 g/dL (33.0-36.5); MEAN CORPUSCULAR VOLUME 91.5 FL (78-98); MEAN PLATELET VOLUME 7.6 FL (7.4-10.4); MONOCYTES % (AUTO) 9.3 % (2-12); NEUTROPHILS # (AUTO) 7.6 X10'3 (1.8-7.7); NEUTROPHILS % (AUTO) 71.8 % (42-75); PLATELET COUNT 332 X10'3 (140-440); RED BLOOD COUNT 4.86 X10'6 (4.70-6.10); RED CELL DISTRIBUTION WIDTH 13.3 % (11.5-14.5); WHITE BLOOD COUNT 10.5 X10'3 (4.5-11.0)
[2022-09-11 08:50] LABS: ALANINE AMINOTRANSFERASE 21 U/L (12-78); ALBUMIN 3.4 G/DL (3.4-5.0); ALBUMIN/GLOBULIN RATIO 0.8 (1.1-1.5); ALKALINE PHOSPHATASE 89 IU/L (46-116); ANION GAP 6 (8-16); ASPARTATE AMINO TRANSFERASE 19 U/L (10-37); BILIRUBIN,TOTAL 0.2 MG/DL (0.1-1.0); BLOOD UREA NITROGEN 19 MG/DL (7-18); CALCIUM 9.6 MG/DL (8.5-10.1); CHLORIDE 105 MMOL/L (99-107); GLUCOSE 121 MG/DL (70-104); SODIUM 138 MMOL/L (135-145); TOTAL CARBON DIOXIDE 27.5 MMOL/L (24-32); TOTAL PROTEIN 7.5 G/DL (6.4-8.2); eGFR 77 ML/MIN
[2022-09-11] MEDS ORDERED: diltiazem 5mg/ml 5ml inj. IV ONE ×2 (08:57→08:59)
[2022-09-11] MEDS ORDERED: normal saline 1000ML IV soln IVB ONE (09:00)
[2022-09-11 09:02] LABS: POTASSIUM 4.5 MMOL/L (3.5-5.1)
[2022-09-11] MEDS ORDERED: APIX5TAB3 PO (09:38)
[2022-09-11] MEDS ORDERED: LOP12.5T PO (09:38)
[2022-09-11 09:56] VITALS: BP 152/90
== END 2022-09-11 10:02 | disposition home or self-care (01) ==
LOC: ER 06:56
DX: I48.91 Unspecified atrial fibrillation (principal); I50.9 Heart failure, unspecified
CPT/HCPCS: 36415; 71045; 80053; 83880; 84484; 85025; 93005; 96361; 96374; 99285; J3490; J7030

== ENCOUNTER 2023-11-11 08:27 | Emergency (ER) | payer BC ==
[~2023-11-11] VITALS: Ht 190.5 cm; Wt 95.5 kg
[~2023-11-11 08:27] MED LIST changes: +LOP12.5T PO
[2023-11-11 09:03] VITALS: TEMP 98.1
[2023-11-11] MEDS ORDERED: cloNIDine 0.1 mg tablet PO ONE (11:55)
[2023-11-11] MEDS ORDERED: AMI200T PO (11:58)
[2023-11-11] MEDS ORDERED: CARV6.2513 PO (11:58)
[2023-11-11 13:20] VITALS: BP 191/100; PULSE 79; RESP 16; O2SAT 94
== END 2023-11-11 13:43 | disposition home or self-care (01) ==
LOC: ER 08:28
DX: S61.412A Laceration without foreign body of left hand, initial encounter (principal); S61.215A Laceration without foreign body of left ring finger without damage to nail, initial encounter; S61.217A Laceration without foreign body of left little finger without damage to nail, initial encounter; W18.39XA Other fall on same level, initial encounter; Y93.89 Activity, other specified; Y92.89 Other specified places as the place of occurrence of the external cause; Y99.8 Other external cause status
CPT/HCPCS: 73130; 99283; A6449

== ENCOUNTER 2024-01-11 21:14 | Emergency (ER) | payer BC ==
[~2024-01-11] VITALS: Ht 190.5 cm; Wt 96.0 kg
[~2024-01-11 21:14] MED LIST changes: +CARV6.2513 PO
[2024-01-11 21:24] VITALS: BP 172/81; PULSE 95; RESP 20; TEMP 99.1; O2SAT 96
[2024-01-11] MEDS ORDERED: AMOX-117 PO (22:14)
[2024-01-11] MEDS: dexamethasone sod phosphate 10mg/ml inj PO STA (22:15)
== END 2024-01-11 22:23 | disposition home or self-care (01) ==
LOC: ER 21:15
DX: J03.90 Acute tonsillitis, unspecified (principal); F17.200 Nicotine dependence, unspecified, uncomplicated; I50.9 Heart failure, unspecified; E78.00 Pure hypercholesterolemia, unspecified; Z88.8 Allergy status to other drugs, medicaments and biological substances; Z79.899 Other long term (current) drug therapy
CPT/HCPCS: 99283; J1100

== ENCOUNTER 2024-04-30 14:36 | Emergency (ER) | payer BC ==
[~2024-04-30] VITALS: Ht 182.9 cm; Wt 95.5 kg
[2024-04-30 15:20] LABS: BILIRUBIN,URINE NEGATIVE (Neg); CLARITY,URINE CLOUDY (Clear); COLOR,URINE RED (Yellow); GLUCOSE, URINE NEGATIVE (Neg); KETONES,URINE NEGATIVE (Neg); LEUKOCYTE ESTERASE ,URINE NEGATIVE (Neg); OCCULT BLOOD,URINE MODERATE (Neg); PH,URINE 5.5 (4.8-8.0); PROTEIN,URINE NEGATIVE (Neg); UROBILINOGEN,URINE 0.2 E.U/dL (0.2-1.0)
[2024-04-30 15:22] LABS: NITRITES, URINE NEGATIVE (Neg); UA COLLECTION TYPE CLN CATCH MIDSTREAM
[2024-04-30 15:32] LABS: SQUAMOUS EPITHELIAL CELL,UR NONE SEEN /LPF (FEW)
[2024-04-30 15:34] LABS: WBC,URINE NONE SEEN /HPF (0-4)
[2024-04-30 15:35] LABS: BACTERIA,URINE NONE SEEN /HPF (Neg); RBC,URINE TNTC /HPF (0-2)
[2024-04-30 16:07] LABS: EOSINOPHILS % (AUTO) 6.7 % (0-6); HEMATOCRIT 39.5 % (42.0-52.0); HEMOGLOBIN 13.5 g/dl (14.0-17.9); LYMPHOCYTES % (AUTO) 16.8 % (21-51); MEAN CORPUSCULAR HEMOGLOBIN 32.2 PG (27.0-31.0); MEAN CORPUSCULAR HGB CONC 34.1 g/dL (33.0-36.5); MEAN CORPUSCULAR VOLUME 94.6 FL (78-98); MEAN PLATELET VOLUME 7.9 FL (7.4-10.4); MONOCYTES % (AUTO) 13.1 % (2-12); NEUTROPHILS % (AUTO) 62.6 % (42-75); PLATELET COUNT 282 X10'3 (140-440); RED BLOOD COUNT 4.18 X10'6 (4.70-6.10); RED CELL DISTRIBUTION WIDTH 13.7 % (11.5-14.5)
[2024-04-30 16:08] LABS: BASOPHILS # (AUTO) 0.1 X10'3 (0-0.2); BASOPHILS % (AUTO) 0.8 % (0-1); EOSINOPHILS # (AUTO) 0.5 X10'3 (0-0.9); LYMPHOCYTES # (AUTO) 1.2 X10'3 (1.1-4.8); MONOCYTES # (AUTO) 0.9 X10'3 (0-0.9); NEUTROPHILS # (AUTO) 4.4 X10'3 (1.8-7.7)
[2024-04-30 16:36] LABS: ALANINE AMINOTRANSFERASE 27 U/L (12-78); ALBUMIN 3.2 G/DL (3.4-5.0); ALBUMIN/GLOBULIN RATIO 0.8 (1.1-1.5); ALKALINE PHOSPHATASE 72 IU/L (46-116); ANION GAP 9 (8-16); ASPARTATE AMINO TRANSFERASE 17 U/L (10-37); BILIRUBIN,TOTAL 0.5 MG/DL (0.1-1.0); BLOOD UREA NITROGEN 17 MG/DL (7-18); BUN/CREATININE RATIO 15.7 (10.0-20.0); CALCIUM 8.8 MG/DL (8.5-10.1); CHLORIDE 102 MMOL/L (99-107); CREATININE 1.08 MG/DL (0.60-1.10); GLUCOSE 110 MG/DL (70-104); POTASSIUM 3.9 MMOL/L (3.5-5.1); SODIUM 137 MMOL/L (135-145); TOTAL CARBON DIOXIDE 25.7 MMOL/L (24-32); eCRCL 80 ML/MIN; eGFR 70 ML/MIN
[2024-04-30 17:17] LABS: INR 3.3 INR; PROTHROMBIN TIME 31.4 SECONDS (9.0-12.0)
[2024-04-30 17:49] VITALS: BP 206/103; PULSE 60; RESP 20; TEMP 97.7; O2SAT 97
== END 2024-04-30 17:54 | disposition home or self-care (01) ==
LOC: ER 14:37
DX: R31.9 Hematuria, unspecified (principal); R79.1 Abnormal coagulation profile; I48.91 Unspecified atrial fibrillation; I50.9 Heart failure, unspecified; E78.00 Pure hypercholesterolemia, unspecified; Z79.899 Other long term (current) drug therapy
CPT/HCPCS: 36415; 80053; 81001; 85025; 85610; 99285

== ENCOUNTER 2024-06-08 08:44 | Emergency (ER) | payer BC ==
[~2024-06-08] VITALS: Ht 190.5 cm; Wt 95.7 kg
[2024-06-08 10:19] LABS: BASOPHILS # (AUTO) 0.1 X10'3 (0-0.2); BASOPHILS % (AUTO) 1.1 % (0-1); EOSINOPHILS # (AUTO) 0.6 X10'3 (0-0.9); EOSINOPHILS % (AUTO) 4.9 % (0-6); HEMATOCRIT 33.4 % (42.0-52.0); HEMOGLOBIN 11.3 g/dl (14.0-17.9); LYMPHOCYTES # (AUTO) 1.1 X10'3 (1.1-4.8); LYMPHOCYTES % (AUTO) 9.3 % (21-51); MEAN CORPUSCULAR HEMOGLOBIN 32.4 PG (27.0-31.0); MEAN CORPUSCULAR HGB CONC 33.9 g/dL (33.0-36.5); MEAN CORPUSCULAR VOLUME 95.7 FL (78-98); MEAN PLATELET VOLUME 7.6 FL (7.4-10.4); MONOCYTES # (AUTO) 1.2 X10'3 (0-0.9); MONOCYTES % (AUTO) 10.4 % (2-12); NEUTROPHILS # (AUTO) 8.8 X10'3 (1.8-7.7); NEUTROPHILS % (AUTO) 74.3 % (42-75); PLATELET COUNT 331 X10'3 (140-440); RED BLOOD COUNT 3.49 X10'6 (4.70-6.10); RED CELL DISTRIBUTION WIDTH 13.2 % (11.5-14.5); WHITE BLOOD COUNT 11.9 X10'3 (4.5-11.0)
[2024-06-08 10:25] LABS: ALBUMIN 3.1 G/DL (3.4-5.0); ANION GAP 7 (8-16); BLOOD UREA NITROGEN 14 MG/DL (7-18); CHLORIDE 101 MMOL/L (99-107); CREATININE 1.17 MG/DL (0.60-1.10); GLUCOSE 90 MG/DL (70-104); POTASSIUM 4.8 MMOL/L (3.5-5.1); SODIUM 136 MMOL/L (135-145); TOTAL CARBON DIOXIDE 27.7 MMOL/L (24-32); eCRCL 80 ML/MIN; eGFR 64 ML/MIN
[2024-06-08 10:34] LABS: APTT 57 SECONDS (22-32)
[2024-06-08 10:37] LABS: INR 4.2 INR
[2024-06-08 11:36] VITALS: BP 98/194; PULSE 68; RESP 16; TEMP 97.3; O2SAT 85
[2024-06-08 12:13] LABS: % IRON SATURATION 17 % (11-46); IRON 45 UG/DL (53-167); TOTAL IRON BINDING CAPACITY 269 UG/DL (259-388)
== END 2024-06-08 11:38 | disposition home or self-care (01) ==
LOC: ER 08:44
DX: S80.12XA Contusion of left lower leg, initial encounter (principal); S70.12XA Contusion of left thigh, initial encounter; I48.91 Unspecified atrial fibrillation; D68.32 Hemorrhagic disorder due to extrinsic circulating anticoagulants; I50.9 Heart failure, unspecified; E78.00 Pure hypercholesterolemia, unspecified; Z79.899 Other long term (current) drug therapy; X58.XXXA Exposure to other specified factors, initial encounter; Y93.89 Activity, other specified; Y92.89 Other specified places as the place of occurrence of the external cause; Y99.8 Other external cause status
CPT/HCPCS: 36415; 80048; 83540; 83550; 85025; 85610; 85730; 93971; 99284; A6449

== ENCOUNTER 2024-09-10 17:09 | Emergency (ER) | payer BC ==
[~2024-09-10] VITALS: Ht 190.5 cm; Wt 94.5 kg
[2024-09-10 17:19] VITALS: BP 216/91; PULSE 77; RESP 16; O2SAT 98
[2024-09-10] MEDS ORDERED: LIDO15SO9 PO (17:58)
[2024-09-10] MEDS ORDERED: AMOX-580 PO (17:58)
[2024-09-10] MEDS: amox tr/potassium clavulanate 875/125mg TAB PO ONE (18:07)
[2024-09-10 18:10] VITALS: TEMP 97.5
== END 2024-09-10 18:12 | disposition home or self-care (01) ==
LOC: ER 17:10
DX: J36 Peritonsillar abscess (principal); I48.91 Unspecified atrial fibrillation; E78.00 Pure hypercholesterolemia, unspecified; I50.9 Heart failure, unspecified; Z79.899 Other long term (current) drug therapy
CPT/HCPCS: 99283